=== PATIENT | female | born 1965 | race African-American/Black ===

== ENCOUNTER 2018-05-18 01:20 | Emergency (ER) | payer MEDICAID ==
[~2018-05-18] VITALS: Ht 162.6 cm; Wt 68.0 kg
[2018-05-18 05:59] LABS: BASOPHILS % 0.5 % (0.0-2.0); HEMATOCRIT. 36.2 % (36.0-48.0); HEMOGLOBIN. 12.2 g/dL (12.0-16.0); LYMPHOCYTES % 19.3 % (20.0-50.0); MEAN CORPUSCULAR HEMOGLOBIN 29.5 pg (28.0-32.0); MEAN CORPUSCULAR VOLUME 87.6 fL (81.0-99.0); MEAN PLATELET VOLUME 6.8 fl (7.4-10.4); MONOCYTES % 7.6 % (2.0-8.0); NEUTROPHILS % 72.6 % (40.0-76.0); PLATELET 378 x1000/uL (130-400); RED BLOOD CELL COUNT 4.13 mill/uL (4.2-5.4); RED CELL DISTRIBUTION WIDTH 15.1 % (11.6-14.6)
[2018-05-18 06:04] LABS: CHLORIDE 107 mEq/L (98-107)
[2018-05-18] MEDS ORDERED: SODIUM CHLORIDE 0.9% 1,000 ML IV ONE (07:00)
[2018-05-18] MEDS ORDERED: KCL 20MEQ/100ML PREMIX 100 ML IV ONE ×2 (07:30)
[2018-05-18 08:19] LABS: ETHANOL BLOOD < 10 mg/dL
[2018-05-18] MEDS ORDERED: POTASSIUM CHLORIDE 20MEQ TABLET SR PO ONE (09:45)
[2018-05-18] MEDS ORDERED: ACETAMINOPHEN 500MG TABLET PO ONE (09:45)
[2018-05-18] MEDS ORDERED: ACETAMINOPHEN 500MG TABLET PO NR ×2 (14:45)
[2018-05-18] MEDS ORDERED: ACETAMINOPHEN 325MG TABLET PO PRN ×2 (14:45→16:00)
[2018-05-18] MEDS ORDERED: HYDROCODONE/ACETAMINOPHEN 5/325MG TABLET PO PRN (16:00)
[2018-05-18] MEDS ORDERED: MAGNESIUM/ALUMINUM HYDROXIDE/SIMETHICONE 30ML UDC PO PRN (16:00)
[2018-05-18] MEDS ORDERED: DOCUSATE SODIUM 100MG CAPSULE PO PRN (16:00)
[2018-05-18] MEDS ORDERED: HYDROCODONE/ACETAMINOPHEN 10/325MG TABLET PO PRN (16:00)
[2018-05-18] MEDS ORDERED: ONDANSETRON HCL 4MG/2ML VIAL IV PRN (16:00)
[2018-05-18] MEDS ORDERED: ACETAMINOPHEN 650MG SUPP PR PRN (16:00)
[2018-05-18] MEDS ORDERED: GUAIFENESIN 200MG/10ML SUGAR FREE UDC PO PRN (16:00)
[2018-05-18] MEDS ORDERED: ACETAMINOPHEN 650MG/20.3ML UDC GT PRN (16:00)
[2018-05-18] MEDS ORDERED: LORAZEPAM 2MG/ML CPJ IV PRN (16:00)
[2018-05-18 16:56] VITALS: BP 137/54
[2018-05-18 18:06] LABS: BASOPHILS % 0.2 % (0.0-2.0); EOSINOPHILS % 0.1 % (0.0-5.0); HEMATOCRIT. 35.7 % (36.0-48.0); HEMOGLOBIN. 11.9 g/dL (12.0-16.0); LYMPHOCYTES % 24.5 % (20.0-50.0); MEAN CORPUSCULAR HEMOGLOBIN 29.1 pg (28.0-32.0); MEAN CORPUSCULAR VOLUME 87.6 fL (81.0-99.0); MEAN PLATELET VOLUME 7.2 fl (7.4-10.4); MONOCYTES % 6.4 % (2.0-8.0); NEUTROPHILS % 68.8 % (40.0-76.0); PLATELET 387 x1000/uL (130-400); RED BLOOD CELL COUNT 4.08 mill/uL (4.2-5.4); RED CELL DISTRIBUTION WIDTH 15.1 % (11.6-14.6)
[2018-05-18 18:23] LABS: CHLORIDE 108 mEq/L (98-107)
== END 2018-05-18 18:46 | disposition left against medical advice (07) ==
LOC: ER 01:20 → ENRESERV 14:59 → CANRESERV 14:59 → EDBEDREQSVC 16:28 → ER 18:46 → CANBEDREQ 20:20
DX: M79.672 Pain in left foot (principal); W05.0XXA Fall from non-moving wheelchair, initial encounter; Y93.89 Activity, other specified; Y92.89 Other specified places as the place of occurrence of the external cause; Y99.8 Other external cause status; Z88.8 Allergy status to other drugs, medicaments and biological substances; Z98.890 Other specified postprocedural states
CPT/HCPCS: 36415; 71045; 73552; 73630; 80048; 80053; 80307; 80329; 83036; 83605; 83690; 83735; 83880; 84145; 85025; 87040; 93005; 93971; 99285; G0482; J3480; J7030

== ENCOUNTER 2019-03-10 14:19 | Emergency (ER) | payer MEDICAID ==
[~2019-03-10] VITALS: Ht 165.1 cm; Wt 81.0 kg
[2019-03-10] MEDS ORDERED: HYDROCODONE/ACETAMINOPHEN 10/325MG TABLET PO ONE (15:30)
[2019-03-10] MEDS ORDERED: IBUPROFEN 800MG TABLET PO ONE (16:30)
[2019-03-10 16:35] VITALS: BP 145/81
== END 2019-03-10 16:34 | disposition home or self-care (01) ==
LOC: ER 14:19
DX: S30.0XXA Contusion of lower back and pelvis, initial encounter (principal); M25.552 Pain in left hip; E11.9 Type 2 diabetes mellitus without complications; I10 Essential (primary) hypertension; F17.200 Nicotine dependence, unspecified, uncomplicated; W01.0XXA Fall on same level from slipping, tripping and stumbling without subsequent striking against object, initial encounter; Y93.89 Activity, other specified; Y92.89 Other specified places as the place of occurrence of the external cause; Y99.8 Other external cause status; Z98.890 Other specified postprocedural states; Z88.6 Allergy status to analgesic agent
CPT/HCPCS: 72100; 73522; 99283

== ENCOUNTER 2022-12-02 12:28 | Emergency (ER) | payer MEDICAID ==
[~2022-12-02] VITALS: Ht 162.6 cm; Wt 78.0 kg
[2022-12-02 12:38] VITALS: BP 128/54
== END 2022-12-02 15:12 | disposition left against medical advice (07) ==
LOC: ER 12:28
DX: Z53.21 Procedure and treatment not carried out due to patient leaving prior to being seen by health care provider (principal)